=== PATIENT | female | born 1985 | race Caucasian/White ===

== ENCOUNTER 2021-02-14 08:00 | Outpatient (CLI) | payer OTHER ==
[2021-02-14 18:58] LABS: BILIRUBIN,URINE NEGATIVE (NEGATIVE); GLUCOSE, URINE (UA) NEGATIVE (NEGATIVE); KETONES,URINE (UA) NEGATIVE (NEGATIVE); LEUKOCYTE ESTERASE, URINE NEGATIVE (NEGATIVE); NITRITE,URINE NEGATIVE (NEGATIVE); OCCULT BLOOD,URINE NEGATIVE (NEGATIVE); PROTEIN,URINE NEGATIVE (NEGATIVE); UROBILINOGEN,URINE 0.2 (NORMAL) E.U./dL (NORMAL)
[2021-02-14 19:42] LABS: AMORPHOUS SEDIMENT,UR Marked /LPF; BACTERIA,URINE None Seen /HPF (None Seen); CLARITY,URINE CLOUDY (CLEAR); RBC,URINE None Seen /HPF (0-5); SQUAMOUS EPITHELIAL CELL,UR NONE SEEN (<= Few); WBC,URINE 0-3 /HPF (0-5)
== END 2021-02-14 22:55 | disposition home or self-care (01) ==
LOC: LAB.WC 08:00
PROVIDERS: ATTEND Obstetrics & Gynecology
DX: Z32.01 Encounter for pregnancy test, result positive (principal)
CPT/HCPCS: 81001; 87086

== ENCOUNTER 2021-02-25 14:00 | Outpatient (CLI) | payer OTHER ==
[2021-02-25 15:12] LABS: BASOPHILS % (AUTO) 0.4 %; EOSINOPHILS # (AUTO) 0.1 10^3/uL (0.0-0.7); EOSINOPHILS % (AUTO) 1.2 %; HGB - HEMOGLOBIN 12.7 g/dL (12.0-16.0); LYMPHOCYTES # (AUTO) 2.4 10^3/uL (1.5-3.5); LYMPHOCYTES % (AUTO) 28.5 %; MEAN CORPUSCULAR HEMOGLOBIN 31.1 pg (27.0-31.0); MEAN CORPUSCULAR HGB CONC 34.3 g/dL (32.0-36.0); MEAN CORPUSCULAR VOLUME 90.7 fL (81.0-99.0); MEAN PLATELET VOLUME 10.6 fL (7.9-10.8); MONOCYTES # (AUTO) 0.7 10^3/uL (0.0-1.0); NEUTROPHILS # (AUTO) 5.1 10^3/uL (1.5-6.6); NEUTROPHILS % (AUTO) 61.5 %; PLT - PLATELET COUNT 226 10^3/uL (130-450); RED BLOOD COUNT 4.08 10^6/uL (4.20-5.40); RED CELL DISTRIBUTION WIDTH 12.3 % (12.0-15.0); WHITE BLOOD COUNT 8.3 x10^3/uL (4.8-10.8)
--- NOTE | 2021-02-25 15:53 | Ultrasound Report ---
PROCEDURE: OB First Trimester w/TV INDICATIONS: POSITIVE TEST OUTSIDE/PRIOR DATING DATA: Last menstrual period (LMP): January 01, 2021. LMP-based estimated date of delivery (MAIDA): October 08, 2021. TECHNIQUE: Real-time scanning was performed of the fetus and maternal pelvic organs, with image documentation. Endovaginal scanning was also performed to better visualize the fetus and maternal ovaries. COMPARISON: None. FINDINGS: Diamnionic, dichorionic . Gestational sac A: Mean sac diameter, 1.63 cm, compatible with a 6 week, 3 day gestation. A normal yo lk sac is seen. Gestational sac B: Mean sac diameter: 1.43 cm, compatible with a 6 week, 2 day gestation. No sac is p resent. Measurement variability in dating: +/- 4 weeks by LMP, +/- 7 days by mean sac diameter (use before 6 weeks gestation if crown-rump length not able to be measured), +/- 5 days by crown-rump length (6-12 weeks gestation). Maternal organs: The left ovary measures 2.4 x 2.9 x 2 cm. The right ovary measures 2.1 x 2 x 1.3 cm. IMPRESSION: Early diamniotic, dichorionic 20 cc as detailed above. Consider correlation with serial quantitative beta hCGs and follow-up ultrasound as clinically arlette saldana. Reviewed by: Ramone Tam MD on 02/25/2021 3:52 PM PDT Approved by: Ramone Tam MD on 02/25/2021 3:52 PM PDT Station ID: [id number]
[2021-02-26 11:29] LABS: HIV AG/AB 4TH GEN NON-REACTIVE (NON-REACTIVE)
[2021-02-26 16:11] LABS: HEPATITIS B SURFACE ANTIGEN NON-REACTIVE (NON-REACTIVE)
[2021-02-26 16:12] LABS: HEPATITIS C ANTIBODY NON-REACTIVE (NON-REACTIVE)
== END 2021-02-25 14:01 | disposition home or self-care (01) ==
LOC: DI 14:00
PROVIDERS: ATTEND Obstetrics & Gynecology
DX: O30.041 Twin pregnancy, dichorionic/diamniotic, first trimester (principal); Z3A.01 Less than 8 weeks gestation of pregnancy; Z36.89 Encounter for other specified antenatal screening; Z32.01 Encounter for pregnancy test, result positive
CPT/HCPCS: 36415; 85025; 86592; 86762; 86787; 86803; 86850; 86900; 86901; 87340; 87389

== ENCOUNTER 2021-03-11 15:24 | Outpatient (CLI) | payer OTHER ==
--- NOTE | 2021-03-11 16:44 | Ultrasound Report ---
PROCEDURE: OB First Trimester w/TV INDICATIONS: POSITIVE TEST, F/U TO 02/25 US OUTSIDE/PRIOR DATING DATA: Last menstrual period (LMP): January 01, 2021. LMP-based estimated date of delivery (MAIDA): October 08, 2021. First dating [facility] (date and [facility]; February 25, 2021. TECHNIQUE: Real-time scanning was performed of the fetus and maternal pelvic organs, with image documentation. Endovaginal scanning was also performed to better visualize the fetus and maternal ovaries. COMPARISON: February 25, 2021 FINDINGS: Diamnionic, dichorionic . Gestational sac A: No pole. Mean sac diameter, 3.12 cm, compatible with an 8 week, 2 day gestat ion. Redemonstrated in size, decreased in size compared to the prior study. Gestational sac B: No pole. Mean sac diameter: 2 cm, compatible with a 6 week, 6 day gestation. No sac is present. Measurement variability in dating: +/- 4 weeks by LMP, +/- 7 days by mean sac diameter (use before 6 weeks gestation if crown-rump length not able to be measured), +/- 5 days by crown-rump length (6-12 weeks gestation). Maternal organs: The cervix is closed. A 1.3 x 0.6 x 2.7 cm hypoechoic area seen in the posterior uterus, compatible with subchorionic hemor rhage. The left ovary contains an isoechoic lesion, measuring up to 1.6 cm, which may reflect a corpus luteu m. The right ovary contains a anechoic lesion, measuring up to 7.2 mm, compatible phthisis. IMPRESSION: 1.Findings consistent with early failure. Interpretation concordant with the preliminary report. Reviewed by: Ramone Tam MD on 03/11/2021 4:43 PM PDT Approved by: Ramone Tam MD on 03/11/2021 4:43 PM PDT Station ID: [id number]
== END 2021-03-11 15:25 | disposition home or self-care (01) ==
LOC: DI 15:24
PROVIDERS: ATTEND Obstetrics & Gynecology
DX: Z32.01 Encounter for pregnancy test, result positive (principal)

== ENCOUNTER 2021-03-20 06:26 | Day surgery (SDC) | payer OTHER ==
[2021-03-20] MEDS ORDERED: LACTATED RINGERS 1,000 ML IV ONE ×3 (06:37→08:22)
[2021-03-20] MEDS ORDERED: fentaNYL 100 MCG/2 ML VIAL ONE ×2 (07:03→07:25)
[2021-03-20] MEDS ORDERED: ROPIVACAINE 0.5% PF 20 ML AMPULE ONE (07:03)
[2021-03-20] MEDS ORDERED: PROPOFOL 200 MG/20 ML VIAL IVP ONE (07:05)
[2021-03-20] MEDS ORDERED: fentaNYL 100 MCG/2 ML VIAL IVP PRN (07:10)
[2021-03-20] MEDS ORDERED: HYDROmorphone 0.5 MG/0.5 ML SYRINGE IVP PRN (07:10)
[2021-03-20] MEDS ORDERED: ATROPINE ABBOJECT 1 MG/10 ML SYRINGE IVP PRN (07:10)
[2021-03-20] MEDS ORDERED: ONDANSETRON 4 MG/2 ML VIAL IVP PRN (07:10)
[2021-03-20] MEDS ORDERED: NALOXONE 0.4 MG/ML VIAL IVP PRN (07:10)
[2021-03-20] MEDS ORDERED: MORPHINE 2 MG/ML CARPUJECT IVP PRN (07:10)
[2021-03-20] MEDS ORDERED: LIDOCAINE-MPF 2% 5 ML VIAL ONE (07:10)
--- NOTE | 2021-03-20 07:10 | ANESTHESIA ---
Pre-Anesthesia VS, & Labs - Diagnosis missed AB - Procedure Suction D&C Vital Signs: Temp Pulse Resp BP Pulse Ox 36.9 C 97 14 114/57 L 99 03/20/21 06:38 03/20/21 06:38 03/20/21 06:38 03/20/21 06:38 03/20/21 06:38 Height: 5 ft 2 in Weight (kg): 74.7 kg Body Mass Index: 30.1 BMI Classification: Obese - NPO >8 hours - Is Patient ?: Yes Home Medications and Allergies Home Medications: Ambulatory Orders No Known Home Medications 03/19/21 No Known Home Medications 03/19/21 Allergies/Adverse Reactions: Allergies Allergy/AdvReac Type Severity Reaction Status Date / Time No Known Drug Allergies Allergy Verified 03/19/21 09:27 Anes History & Medical History - Anesthetic History Family history of Anesthesia Complications: Denies Family history of Malignant Hyperthermia: Denies - Medical History Cardiovascular: reports: None Pulmonary: reports: None Gastrointestinal: reports: None Urinary: reports: None Neuro: reports: None Musculoskeletal: reports: None Endocrine/Autoimmune: reports: None Blood Disorders: reports: None Skin: reports: None Smoking Status: Never smoker Psychosocial: reports: No issues indicated History of Cancer?: No Exam General: Alert, Oriented x3, Cooperative, No acute distress Dental: WNL Mouth Openin Fingerbreadth Neck Mobility: Normal Mallampati classification: II Thyromental Distance: 4-6 cm Mental/Cognitive Status: Alert/Oriented X3, Normal for patient Plan Anesthesia Type: General Consent for Procedure(s) Verified and Reviewed: Yes Code Status: Attempt Resuscitation ASA classification: 1-Healthy patient Is this case an emergency?: No
[2021-03-20] MEDS ORDERED: ONDANSETRON 4 MG/2 ML VIAL ONE (07:12)
[2021-03-20] MEDS ORDERED: CELECOXIB 100 MG CAPSULE PO ONE (07:15)
[2021-03-20] MEDS ORDERED: ACETAMINOPHEN 500 MG TABLET PO ONE (07:15)
[2021-03-20] MEDS ORDERED: GABAPENTIN 400 MG CAPSULE ONE (07:15)
[2021-03-20] MEDS ORDERED: LIDOCAINE 2%-EPI 1:100000 20 ML MDV ONE (07:19)
[2021-03-20] MEDS ORDERED: MIDAZOLAM 2 MG/2 ML VIAL ONE (07:25)
--- NOTE | 2021-03-20 07:57 | OPERATIVE REPORT ---
Operative Report - General Planned Procedure: Suction dilation and curettage Pre-Op Diagnosis: Missed Procedure Performed: Suction dilation and curettage Post Op Diagnosis: Missed - Procedure Note Primary Surgeon: Ghassan Noble MD Anesthesia Provider: Moernita Pickard CRNA Anesthesia Technique: General LMA Pathology: Products of conception Estimated Blood Loss (mL): 200 Urine Output (mL): 50 Findings: Uterus below the pubic bone. Mildly dilated cervical os. Uterine contents grossly normal. Complications: None - Other Other Information/Narrative: Prior to the procedure, patient was counseled on the risks and benefits of expectant, medical, surgical management of a missed . She elected for surgical management and agreed to continue. She was counseled in clinic prior to scheduling surgery. Patient was placed in dorsal lithotomy position with yellowfin stirrups. The pelvis was prepped and the patient was draped in the usual fashion. Careful p elvic examination is performed to locate the position of the uterus and noted mild dilation of the cervical os. A weighted speculum was placed in the vagina and the cervix was grasped with a single-tooth tenaculum and gently drawn towards the vaginal outlet. Think gentle pressure, the cervix was dilated to 7 mm. A 7 mm flexible suction catheter was used for suction. The catheter was placed without suction into the uterine cavity. Blood and products of conception were collected in the section catheter container. After adequate removal of products, a sharp curette was used to remove additional products of conception adherent to uterine garcia. The products were collected on a Telfa pad. After removing products of conception and feeling circumferential uterine cri, adequate hemostasis was noted from coming from the uterus and the tenaculum was removed. Upon examination, the patient was hemostatic. All instruments were removed. Patient was returned to dorsal supine position and awoke from anesthesia. She was taken to the PACU in good condition.
[2021-03-20] MEDS ORDERED: SCOPOLAMINE PATCH TOP SCH (08:00)
[2021-03-20] MEDS ORDERED: LACTATED RINGERS 1,000 ML IV SCH (08:00)
[2021-03-20] MEDS ORDERED: DOXYCYCLINE INJ 200 MG in SODIUM CHLORIDE 0.9% 250 ML IV SCH (08:00)
[2021-03-20] MEDS ORDERED: LIDOCAINE 2%-EPI 1:100000 20 ML MDV SUBQ ONE (08:05)
[2021-03-20] MEDS ORDERED: ePHEDrine 50 MG/ML VIAL IVP ONE (08:08)
[2021-03-20 08:43] VITALS: BP 105/54
--- NOTE | 2021-03-20 10:01 | ANESTHESIA POST OP EVALUATION ---
Anesthesia Post Eval - Post Anesthesia Eval Vitals: Last Vital Signs Temp 36.9 C 03/20/21 08:38 Pulse 72 03/20/21 08:38 Resp 14 03/20/21 08:38 BP 105/54 L 03/20/21 08:38 Pulse Ox 100 03/20/21 08:38 CV Function Including HR & BP: Stable Pain Control: Satisfactory Nausea & Vomiting: Negative Mental Status: Baseline Respiratory Status: Airway Patent Hydration Status: Satisfactory Anesthesia Complications: None
== END 2021-03-20 06:27 | disposition home or self-care (01) ==
LOC: SDS 06:26
PROVIDERS: ATTEND Obstetrics & Gynecology
PROC: 10D17ZZ Extraction of Products of Conception, Retained, Via Natural or Artificial Opening (ICD-10-PCS; principal; 2021-03-20 07:30)
DX: O02.1 Missed abortion (principal); E66.9 Obesity, unspecified; Z68.30 Body mass index [BMI] 30.0-30.9, adult
CPT/HCPCS: 59820; A9270; J3490; J7120